=== PATIENT | female | born 1965 | race Caucasian/White ===

== ENCOUNTER 2017-06-04 12:29 | Emergency (ER) | payer OTHER ==
[~2017-06-04] VITALS: Ht 152.4 cm; Wt 57.2 kg
[2017-06-04 12:44] VITALS: BP 145/76
--- NOTE | 2017-06-04 12:51 | NUR ---
Pt presents to ED with N/V and Dizziness x1 day. Pt states Hx of vertigo and desires ER MD exam to r/o vertigo. Pt states no chest pain, no loss of consiousness, no change in vision. Skin cool and dry. A&Ox4. VSS. Positioned in bed for comfort. Room lights dimmed for comfort. Pt states bright lights contribute to dizziness. ER MD aware. Continue to monitor.
[2017-06-04] MEDS ORDERED: DICYCLOMINE HCL LIQUID 20 MG, ALUMINUM HYD/MAG/SIMETHICONE 30 ML, LIDOCAINE VISCOUS 2% ... PO ONE ×3 (13:25)
[2017-06-04] MEDS ORDERED: ONDANSETRON 4 MG ODT PO ONE (13:25)
[2017-06-04] MEDS ORDERED: MECLIZINE 25 MG TAB PO ONE ×2 (13:25→13:50)
[2017-06-04] MEDS ORDERED: ONDANSETRON 4 MG/2 ML VIAL IVP ONE (13:50)
[2017-06-04] MEDS ORDERED: NACL 0.9% 1,000 ML IV ONE (13:50)
[2017-06-04 14:14] LABS: HEMATOCRIT 38.9 % (36-48); HEMOGLOBIN 12.8 g/dL (12.0-16.0); MEAN CORPUSCULAR HEMOGLOBIN 29 pg (27-31); MEAN CORPUSCULAR HGB CONC 33 g/dL (33-37); MEAN CORPUSCULAR VOLUME 88.1 fL (80-94); PLATELET COUNT (AUTO) 331 K/uL (140-450); RED BLOOD CELL COUNT(AUTO) 4.42 MIL/uL (4.20-5.40); RED CELL DISTRIBUTION WIDTH 11.9 % (11.6-13.7); WHITE BLOOD COUNT (AUTO) 11.7 K/uL (4.8-10.8)
--- NOTE | 2017-06-04 14:15 | NUR ---
PT VOMITED ALL MEDICATIONS.
[2017-06-04 14:23] LABS: APPEARANCE,URINE CLEAR (CLEAR); BILIRUBIN,URINE NEGATIVE (NEGATIVE); BLOOD, URINE NEGATIVE (NEGATIVE); COLOR,URINE YELLOW (YELLOW); LEUKOCYTE ESTERASE ,URINE NEGATIVE (NEGATIVE); NITRITE, URINE NEGATIVE (NEGATIVE); PH,URINE 6.5 (5.0-9.0); UGLUCOSE NEGATIVE (NEGATIVE)
[2017-06-04 14:29] LABS: LYMPHOCYTES % (MANUAL) 7 % (20-46); MONOCYTES % (MANUAL) 1 % (5-12)
[2017-06-04] MEDS ORDERED: FAMOTIDINE 20 MG TAB PO ONE (14:35)
--- NOTE | 2017-06-04 14:55 | NUR ---
PT GIVEN IV FLUID BOLUS AND ZOFRAN IV WITH POSITIVE EFFECT. MECLAZINE AND PEPSIDE RE-ORDERD. PT TAKEN TO CT AT THIS TIME
[2017-06-04 14:58] LABS: ANION GAP 14.5 (8-16); CARBON DIOXIDE 24.6 mmol/L (21-32); CREATININE 0.6 mg/dL (0.6-1.3); POTASSIUM 4.1 mmol/L (3.5-5.1)
[2017-06-04 15:13] LABS: ALBUMIN 3.8 g/dL (3.4-5.0); TOTAL BILIRUBIN 0.4 mg/dL (0.0-1.0)
[2017-06-04 15:50] VITALS: BP 116/70
--- NOTE | 2017-06-09 01:54 | NUR ---
Late entry for NS 1000ml on 06/04/17 Start time: 1400 End time: 1500 Amount infused: 999 ml No adverse reactions noted. Reassessed at 1430. VSS
== END 2017-06-04 15:50 | disposition home or self-care (01) ==
LOC: MED 12:29
DX: K29.70 Gastritis, unspecified, without bleeding (principal); R42 Dizziness and giddiness
CPT/HCPCS: 36415; 74176; 80053; 81003; 81025; 83690; 85025; 96361; 96374; 99285; J2405; J7030; J8597; S0119